=== PATIENT | female | born 1960 | race Caucasian/White ===

== ENCOUNTER 2019-09-14 11:10 | Emergency (ER) | payer SELFPAY ==
[2019-09-14 11:15] VITALS: BP 140/78; PULSE 99; RESP 18; TEMP 36.8; O2SAT 100
--- NOTE | 2019-09-14 12:18 | ED.WOUNDLAC ---
HPI - Wound/Laceration <RACHEL Mclaughlin - Last Filed: 09/15/19 00:23> General Chief Complaint: Wound/Laceration Stated Complaint: Table saw, left forearm Time Seen by Provider: 09/14/19 12:10 Source: patient Mode of arrival: Ambulatory Limitations: no limitations History of Present Illness HPI narrative: This is a 59-year-old female, smoker, who presents to ED with a friend with chief complain of laceration on volar aspect of left forearm. Patient reports she was working on a table saw cutting with a wood block and when she let go of the piece of wood, it flew off and hit her left left forearm and had sustain lacerations which occurred at about 10 30 this morning. Patient right dominant hand. Last tetanus immunization was updated about 2 years ago. Patient reports discomfort and bruise on affected arm. Related Data Home Medications Medication Instructions Recorded Confirmed B-complex with vitamin C 1 tab PO DAILY 05/10/19 05/10/19 cholecalciferol (vitamin D3) PO 05/10/19 05/10/19 tumeric PO 05/10/19 Previous Rx's Medication Instructions Recorded erythromycin 5 mg/gram (0.5 %) eye 1 cm EYE-RIGHT Q8H #1 gram 05/10/19 ointment Allergies Allergy/AdvReac Type Severity Reaction Status Date / Time No Known Drug Allergies Allergy Verified 05/10/19 09:06 Review of Systems <RACHEL Mclaughlin - Last Filed: 09/15/19 00:23> Review of Systems Narrative: General: Denies fever, chills, fatigue, malaise, sweats. HEENT: Denies sinus pain, ear pain, sore throat, difficulty swallowing, dizziness. Respiratory: Denies dyspnea, cough, wheezing, hemoptysis, sputum. Cardiovascular: Denies chest pain, palpitations, orthopnea, edema. Gastrointestinal: Denies nausea, vomiting, abdominal pain, diarrhea, constipation, melena. : Denies dysuria, frequency, incontinence, hematuria, urinary retention. Musculoskeletal: Reports left forearm pain. Skin: See HPI Neurologic: Denies weakness, headache, numbness, change in speech, confusion, seizures, incoordination. Psychiatric: No concerning psychosocial issues. 12-point review of systems is negative except for those stated above. Patient History <RACHEL Mclaughlin - Last Filed: 09/15/19 00:23> Medical History (Updated 09/14/19 @ 12:51 by RACHEL Mclaughlin) No significant past medical history (Acute) Surgical History (Updated 09/14/19 @ 12:21 by RACHEL Mclaughlin) No pertinent past surgical history (Acute) Social History Smoking Status: Current every day smoker Smoking Status: Current every day smoker alcohol intake frequency: 3 or more drinks per day Alcohol type: beer Substance Use Type: does not use Exam <RACHEL Mclaughlin - Last Filed: 09/15/19 00:23> Narrative Exam Narrative: General appearance: well developed, well nourished, in no acute distress. Head: normocephalic, atraumatic, no scalp lesions, non-tender. ENT: Hearing grossly intact. Nose without bleeding, purulent discharge or deviation. Mucous membrane moist, no mucosal lesion. Throat without erythema, tonsillar hypertrophy or exudate. Uvula in midline, airway patent. Neck/Thyroid: neck supple, full range of motion, no visible masses or meningeal signs. No JVD, non-tender without lymphadenopathy. Skin: 5 cm superficial 2 linear laceration and small abrasion on left forearm. no suspicious rashes, lesions over other visible areas. Warm and dry and appropriate color for ethnicity. Heart: no clubbing, no cyanosis, no edema. S1 and S2 normal. RRR w/o murmurs, clicks, or bruits. Lungs: Breathing even and unlabored. No stridor. No accessory muscles used. Able to speak in full sentences. Chest: normal shape and expansion. Abdomen: non-obese, non-distended. Neurologic: alert and oriented. Cognitive exam, SHOP STEWARD and PNS grossly intact on informal exam. Psych: good eye contact, normal affect. Initial Vital Signs Initial Vital Signs: Vital Signs Temperature 98.2 F 09/14/19 11:15 Pulse Rate 99 H 09/14/19 11:15 Respiratory Rate 18 09/14/19 11:15 Blood Pressure 140/78 09/14/19 11:15 Pulse Oximetry 100 09/14/19 11:15 Extrem Left upper extremity: elbow/forearm Details: tenderness, normal ROM, abrasion, laceration, ecchymosis, distal pulses intact and other (no bony tenderness to palpate); no swelling, no unusual warmth, no crepitus and no deformity <Luís Gonzales MD - Last Filed: 09/15/19 23:19> Initial Vital Signs Initial Vital Signs: Vital Signs Temperature 98.2 F 09/14/19 11:15 Pulse Rate 99 H 09/14/19 11:15 Respiratory Rate 18 09/14/19 11:15 Blood Pressure 140/78 09/14/19 11:15 Pulse Oximetry 100 09/14/19 11:15 Procedures <RAJ MclaughlinP - Last Filed: 09/15/19 00:23> Laceration Repair Laceration 1: Site: upper extremity (volar aspect forearm) Side (If applicable): left Size (cm): 5 Description: linear (two linear superficial) Pre-repair: wound explored and irrigated extensively Skin layer closed with: steri-strips Scores <RAJ MclaughlinP - Last Filed: 09/15/19 00:23> GCS Marsha coma scale eye opening: Spontaneous Marsha coma scale verbal response: Orientated Marsha coma scale motor response: Obey commands Timber coma scale total score: 15 Course <RAJ MclaughlinP - Last Filed: 09/15/19 00:23> Vital Signs Vital signs: Vital Signs - 8 hr 09/14/19 11:15 Temperature 98.2 F Pulse Rate 99 H Respiratory Rate 18 Blood Pressure 140/78 Pulse Oximetry 100 <Luís Gonzales MD - Last Filed: 09/15/19 23:19> Vital Signs Vital signs: Vital Signs - 8 hr 09/14/19 11:15 Temperature 98.2 F Pulse Rate 99 H Respiratory Rate 18 Blood Pressure 140/78 Pulse Oximetry 100 MDM - Wound/Laceration <RAJ MclaughlinP - Last Filed: 09/15/19 00:23> Differential Diagnosis Differential diagnosis: Likely laceration and abrasion [facility] Narrative Medical decision making narrative: Left forearm without bony tenderness to palpate and intact active and passive range of motion with distal pulse. X-ray was deferred at this time. Patient was able to move all her fingers without difficulty. 5 cm superficial laceration on left forearm was treated with Dermabond and Steri-Strips and discussed wound care at home with Dermabond and Steri-Strips. Return precautions were discussed with the patient and patient verbalized understanding and in agreement with treatment plan. Patient advised to take [id number] Tylenol and or Motrin as needed for discomfort. Use ice pack on affected site for next 24-48 hours. Discharge Plan Departure Patient Disposition: Home Clinical Impression: Laceration Discharge Date/Time: 09/14/19 13:20 Instructions: DI for Laceration Repair With Dermabond Activity Restrictions/Additional Instructions: You have been diagnosed with [left volar aspect forearm superficial laceration and abrasion which was repair with Dermabond and Steri-Strips]. What to do: *Take your medications as directed. You can use small amount of Neosporin on abrasion but avoid using this over Dermabond and Steri-Strips. Please do not get your wound soaked in the water until the laceration has healed. Keep your dressing intact for next 24 hrs. After then, you could remove your dressing, wash with soap and water. Pat dry with clean papertowel and dress it. Please avoid using oil based ointment, cream, lotion and etc since this may make dermabond lose and remove prematurely. Dermabond will come off in 5-7 days on its own. Do not peel this off or pick on it. You can change dressing as needed and daily. Please monitor for signs and symptoms for infection such as increasing redness, swelling, warmth, pain, fever, purulent discharge. If this occurs, please return to ED or follow up with your primary care physician since your wound may be infected. Please follow up with your primary care provider in 2-3 days for recheck wound. Please keep your wound clean, dry and intact all times. Prescriptions: No Action cholecalciferol (vitamin D3) PO RF: 0 B-complex with vitamin C [Super B Complex-Vitamin C] Tablet 1 tab PO DAILY RF: 0 tumeric PO RF: 0 erythromycin 5 mg/gram (0.5 %) ointment 1 cm EYE-RIGHT Q8H Qty: 1 RF: 0 Referrals: [facility] [Outside]
[2019-09-14 13:07] VITALS: BP 130/80; PULSE 75; O2SAT 98
== END 2019-09-14 13:20 | disposition home or self-care (01) ==
PROVIDERS: Emergency Provider Nurse Practitioner Family
DX: S51.812A Laceration without foreign body of left forearm, initial encounter (principal); W29.3XXA Contact with powered garden and outdoor hand tools and machinery, initial encounter
CPT/HCPCS: 99282; 99283

== ENCOUNTER → 2024-08-27 11:08 | Outpatient (CLI) | payer OTHER, SELFPAY ==
[2024-08-27 12:25] LABS: Influenza A - CEPHEID Flu A NEGATIVE (NEGATIVE); Influenza B - CEPHEID Flu B NEGATIVE (NEGATIVE); Respiratory Syncytial Virus Negative (Negative)
[2024-08-27 12:29] LABS: COVID-19 CEPHEID 4-PLEX PCR Negative (Negative)
== END ==
PROVIDERS: Visit Provider Physician Assistant
DX: J02.9 Acute pharyngitis, unspecified (principal); R05.1 Acute cough
CPT/HCPCS: 87635; 87400 ×2; 87420; 0241U; 87070; 87880

== ENCOUNTER 2025-01-08 11:30 | Outpatient (RCR) | payer OTHER, SELFPAY ==
--- NOTE | 2024-12-04 13:59 | OT.OPPOC ---
Physical, Occupational & Speech Therapy At [facility] Henrietta Millan [id number] 1960 Visit Care Team Role Provider Type Ana Maria Krause PA-C Attending Provider Non-Staff Family Provider Primary Care Provider Referring Provider [facility], [place], [address] Occupational Therapy Plan of Care OT Outpatient Adult Evaluation Start: 12/04/24 11:02 Freq: Status: Active Protocol: Document 12/04/24 13:28 SHARA (Rec: 12/04/24 13:58 JULIO CESARSDKRISTINE [id number]) General Information - Adult Visit Information Visit Number 1 Plan of Care Dates 12/04/24 - 01/15/25 Insurance Information Aashish, maida pre-auth, max 12 total OT visits including 1 annual eval Session Time Visit Start Date 12/04/24 Visit Start Time 11:35 Visit Stop Time 12:20 Setting Treatment Setting Outpatient Care Visit Type Note Type Initial Evaluation Referral Referring Physician Junior Krause Reason for Referral ganglion of hand, unspecified laterality; eval scar tissue and ROM Precautions return to activity as tolerated Identification Identification Confirmed Yes Identification Confirmed By Name, EMR Patient Questionnaires Quick Dash- Upper Extremity Quick Dash UE Score 50 Quick Dash UE Impairment 40 to 59% Impaired (Score 40- 59) Quick Dash- Work and Sports Modules Quick Dash W&S Score W 62.5, S 75 Quick Dash Work and Sport Impairment 60 to 79% Impaired (Score 60- 79) Goals Objective Measurements Objective Measurements AROM: L thumb: CMC RA 50 (R 54 ); CMC PA 41 (R 50); MP 70 (R 80); IP 62 (R 72) Kapandji opposition: B 10/10 Kapandji retroposition: R 3/4, L 2/4 Crm Technical Lead: R 55, 40, 46 (avg 47#), L 40, 25, 30 (avg 31.7#) Pinch: lateral B 12#, pincer R 10#, L 7#; 3 jaw B 10# Treatment Treatment OT educated pt on adductor release to improve L webspace and scar massage for L thumb. OT performed scar massage on L thumb for improved scar extensibility Short Term Goals Short Term Goals 1. Pt will be I with initial HEP. Warp Tier Goals Longterm Goals 1. Pt will report no p! at rest. 2. Pt will demonstrate improved perception of functional I with a QuickDash score of 25 or better. 3. Pt will demonstrate improved perception of leisure tasks with a QuickDash sport score of 50 or better. 4. Pt will increase L CMC PA to 50 for improved mechanics of use. 5. Pt will increase L thumb total active flexion (TAF) to 140 or better for improved use with tools. 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 Sanford, per MD documentation. Pt was referred for skilled OT services for scar tissue, ROM, and return to activity as tolerated. 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 Pt?s medical hx is significant for arthritis, back p!, Pt quit smoking in February 2024. Pt reports p! in L thumb, wrist, and index finger of 2-5/10 with ? tingling? in index finger. Pt?s goal for OT is to ?get rid of this (indicating scar tissue) and tightness?. Pt lives alone and works as wood worker. She reports that she has difficulty opening packages and has modified by using scissors, has to take rbs when performing double hand tasks like raking and shoveling due to p!, has difficulty with fastening/ buttoning, difficulty with opening tight containers, moderate difficulty with personal injury law specialist and cutting food. Pt?s perceived deficits with respect to QuickDash 50% , QuickDash Work62.5%, and QuickDash Sport 75%. Pt presents with thick scar tissue at L thenar eminence and palmar IP crease. Pt presents with decreased web space and tender thumb adductor on palpation. OT notes slight swelling at snuff box. Pt has no joint tenderness at CMC joint line or at snuff box. Pt presents with decreased AROM of L CMC, MP, and IP. Pt?s L child & adolescent psychiatrist strength exceeds age/gender normative data; however, is likely decreased from pt?s baseline as pt?s career and leisure tasks require significant B hand use pt?s child & adolescent psychiatrist is likely closer to that of her dominant hand. As it stands, pt had c/o p! with L gripping and this should be a p! free task for pt. Skilled OT services are appropriate to address these deficits, educate pt on scar mgmt., and promote return to I with BADL/ IADLs and functional I. Reviewed with Patient Goals,Home Exercise Program Plan Length of treatment (weeks) 6 Plan of Care Start Date 12/04/24 Plan of Care End Date 01/15/25 Treatment Frequency Once a Week Treatment Duration 45 Minutes Therapeutic Contents Active Range of Motion,Client Education,Functional Activities,Home Exercise Program,Joint Protection, Manual Therapy,Education, Neuromuscular Re-Education, Self-Care,Stretching/ Flexibility Activities, Therapeutic Activities, Therapeutic Exercises, Modalities Modalities As Needed Types of Modalities Cyrotherapy,Ice Massage Patient Instruction Home Exercise Program,Plan of Care,Questions/Concerns Functional Wrist/Hand Scan Hand Side Sensory Assessment Sensory Profile2 Electronically Signed by: Corine Evans, OT 12/04/24 2016 If you are in agreement with this Plan of Care, please return a signed and dated copy. I have reviewed this Plan of Care and certify that the skilled therapy services above are required to meet the patient?s needs. Physician Signature Date Printed Name and Credentials Clinical Instructor Signature Printed Name and Credentials
--- NOTE | 2024-12-11 13:28 | OT.OP.TRT ---
Visit Care Team Role Provider Type Ana Maria Krause PA-C Attending Provider Non-Staff Family Provider Primary Care Provider Referring Provider Specialty: Medical Address: [address], [place], [address] Email: Occupational Therapy Treatment Note OT Outpatient Treatment Note - Adult Start: 12/04/24 11:02 Freq: Status: Active Protocol: Document 12/11/24 11:28 SHARA (Rec: 12/11/24 13:28 SHARA [id number]) OT Outpatient Adult Treatment Note Session Time Visit Start Date 12/11/24 Visit Start Time 11:35 Visit Stop Time 12:15 Visit Information Visit Number 2/6 Plan of Care Dates 12/04/24 - 01/15/25 Insurance Information maida Zendejas pre-auth, max 12 total OT visits including 1 annual eval Setting Treatment Setting Outpatient Care Visit Type Note Type Treatment Note - Subjective Identification Type Name Identification Reconciled With Medical Record Observations Pt reports that her hand is doing much better and that her scar has really gone down . Pt continues to c/o occasional numbness in L index finger and at times thumb. Pt without p! c/o during therapy today. Chief Complaint(s) Loss of Motion/Stiffness,Pain Effect on Activity,Restricts Patient/Caregiver Compliance with Home Excellent Exercise Program - Objective Short Term Goals 1. Pt will be I with initial HEP. MET 12/11/24 Graduate Teaching Associate Goals 1. Pt will report no p! at rest. 2. Pt will demonstrate improved perception of functional I with a QuickDash score of 25 or better. 3. Pt will demonstrate improved perception of leisure tasks with a QuickDash sport score of 50 or better. 4. Pt will increase L CMC PA to 50 for improved mechanics of use. 5. Pt will increase L thumb total active flexion (TAF) to 140 or better for improved use with tools. - Treatment 1 Descriptor butterfly mobilization for improved retroposition L CMC x 3 minutes Exercises 2 Descriptor Rubber band: 1 DI (for improved support at CMC) x 10 EPB (2 bands) 10x2 1 Descriptor HEP: thumb stabilization web space release web space to web space thumb stabilization web space release with other hand/clip scar massage Pt demonstrates each of these as indicated on HEP. Pt is I with HEP. Manual Therapy Manual Therapy Scar massage to L thumb as tolerated. STM to L thumb adductors for improved web space. STM to L thenar eminence for improved muscle resting length and functional use. PROM to L thumb CMC RA, PA; MCP flex, and IP flex as tolerated. - Assessment Patient Response to Treatment Good Rehabilitation Potential Excellent Impairments Identified ADLs,Body Mechanics, Flexibility,Functional Activities,Pain,Weakness,Range of Motion,Recreational Activities,Meaningful Activities,Stiffness,Swelling, Soft Tissue Mobility Progress Towards Goals Excellent Progress Assessment of Overall Progress Improving Assessment of Improvement Pt is pleasant, cooperative, and appears to be performing her HEP frequently. Pt is I with initial HEP meeting STG goal. Pt tolerates manual techniques well, including STM of muscles, scar massage, and PROM. Pt requires min vc/tc to perform retroposition mobilization correctly. OT issues this to be performed at home as well. OT notes less thickness to scar and overall less tightness to the thumb musculature. Pt with better web spacing but still with limited retroposition. Pt tolerated all tx well and demonstrates improvements toward established goals. Cont per established POC. Reviewed with Patient/Caregiver Goals,Home Exercise Program - Plan Therapy Recommendations Continue with Current Program Amount of Therapy Recommended 1-2 Months Frequency of Treatment Once a Week Length of Session 45 Minutes Therapeutic Contents Active Range of Motion,Client Education,Functional Activities,Home Exercise Program,Joint Protection, Manual Therapy,Education, Neuromuscular Re-Education, Self-Care,Stretching/ Flexibility Activities, Therapeutic Activities, Therapeutic Exercises, Modalities Modalities As Needed Types of Modalities Cyrotherapy,Ice Massage
--- NOTE | 2024-12-18 13:13 | OT.OP.TRT ---
Visit Care Team Role Provider Type Ana Maria Krause PA-C Attending Provider Non-Staff Family Provider Primary Care Provider Referring Provider Specialty: Medical Address: [address], [place], [address] Email: Occupational Therapy Treatment Note OT Outpatient Treatment Note - Adult Start: 12/04/24 11:02 Freq: Status: Active Protocol: Document 12/18/24 11:35 SHARA (Rec: 12/18/24 09:25 SHARA [id number]) OT Outpatient Adult Treatment Note Session Time Visit Start Date 12/18/24 Visit Start Time 11:35 Visit Stop Time 12:15 Visit Information Visit Number 3/6 Plan of Care Dates 12/04/24 - 01/15/25 Insurance Information maida Zendejas pre-auth, max 12 total OT visits including 1 annual eval Setting Treatment Setting Outpatient Care Visit Type Note Type Treatment Note - Subjective Identification Type Name Identification Reconciled With Medical Record Observations Pt reports that her thumb is feeling a little thicker and says she has not been doing her exercises diligently. Pt reports that she hasn't done the butterfly exercises because it has been hurting her. Pt has been working on several boats and has had no pain or weakness. Pt reports her hand feeling looser and less thick following tx today. Pt reports no p! at start or end of tx. Chief Complaint(s) Loss of Motion/Stiffness,Pain Effect on Activity,Restricts Patient/Caregiver Compliance with Home Excellent Exercise Program - Objective Short Term Goals 1. Pt will be I with initial HEP. 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 Pt will report no p! at rest. MET 12/18/24 2. Pt will demonstrate improved perception of functional I with a QuickDash score of 25 or better. 3. Pt will demonstrate improved perception of leisure tasks with a QuickDash sport score of 50 or better. 4. Pt will increase L CMC PA to 50 for improved mechanics of use. 5. Pt will increase L thumb total active flexion (TAF) to 140 or better for improved use with tools. - Treatment 1 Descriptor King sam mobilization for improved retroposition L CMC x 3 minutes Exercises 2 Descriptor Rubber band: 1 DI (for improved support at CMC) x 10 EPB (2 bands) 10x2 1 Descriptor HEP: OT added charanjit sam mobilization to replace butterfly mobilization for improved retroposition of thumb. Table edge stretch also added to HEP for improved extensibility to web space. OT will review pt's I with these next tx. Manual Therapy Manual Therapy Scar massage to L thumb as tolerated. STM to L thumb adductors for improved web space. STM to L thenar eminence for improved muscle resting length and functional use. PROM to L thumb CMC RA, PA; MCP flex, and IP flex as tolerated and needed. - Assessment Patient Response to Treatment Excellent Rehabilitation Potential Excellent Impairments Identified ADLs,Body Mechanics, Flexibility,Functional Activities,Pain,Weakness,Range of Motion,Recreational Activities,Meaningful Activities,Stiffness,Swelling, Soft Tissue Mobility Progress Towards Goals Excellent Progress Assessment of Overall Progress Improving Assessment of Improvement Pt is pleasant and cooperative . Pt initially reported that she wasn't performing her HEP as she should and believed that was the cause for increased tightness/thickening today. At start of tx, pt presented with pronounced tightness at thumb adductor/ thenar eminence. Through conversation, pt reports she is doing her HEP at least once a day. OT tells her this is sufficient, but to add in another rep if she feels it getting tighter/thicker. OT issued new exercises for HEP, replacing butterfly with charanjit sam for pt comfort and carry over in mobilizing cmc for retroposition. Pt tolerates manual techniques well, including STM of muscles , scar massage, and PROM. Pt requires min vc/tc to perform retroposition mobilization correctly. OT notes less thickness to scar and overall less tightness to the thumb musculature following STM. Pt with better web spacing but still with limited retroposition. Pt tolerated all tx well and demonstrates improvements toward established goals. Cont per established POC. Reviewed with Patient/Caregiver Goals,Home Exercise Program - Plan Therapy Recommendations Continue with Current Program Amount of Therapy Recommended 1-2 Months Frequency of Treatment Once a Week Length of Session 45 Minutes Therapeutic Contents Active Range of Motion,Client Education,Functional Activities,Home Exercise Program,Joint Protection, Manual Therapy,Education, Neuromuscular Re-Education, Self-Care,Stretching/ Flexibility Activities, Therapeutic Activities, Therapeutic Exercises, Modalities Modalities As Needed Types of Modalities Cyrotherapy,Ice Massage
--- NOTE | 2025-01-08 13:03 | OT.OP.TRT ---
Visit Care Team Role Provider Type Ana Maria Krause PA-C Attending Provider Non-Staff Family Provider Primary Care Provider Referring Provider Specialty: Medical Address: [address], [place], [address] Email: Occupational Therapy Treatment Note OT Outpatient Treatment Note - Adult Start: 12/04/24 11:02 Freq: Status: Active Protocol: Document 01/08/25 11:32 SHARA (Rec: 01/08/25 12:28 SHARA [id number]) OT Outpatient Adult Treatment Note Session Time Visit Start Date 01/08/25 Visit Start Time 11:32 Visit Stop Time 12:10 Visit Information Visit Number 4/6 Plan of Care Dates 12/04/24 - 01/15/25 Insurance [employer], no pre-auth, max 12 total OT visits including 1 Information annual eval - Subjective Identification Type Name Identification Medical Record Reconciled With Observations Pt reports that she went kayaking this weekend and that her thumb did well. Pt reports a little pain following but nothing to worry about. Pt reports that she still has a difficult time pulling out tape and has some p! with this. Pt states I think I'm doing good and can do this on my own. 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 Pt will be I with initial HEP. MET 12/11/24 Mcfp Goals 1. Pt will report no p! at rest. MET 12/18/24 2. Pt will demonstrate improved perception of functional I with a QuickDash score of 25 or better. MET 01/08/25 3. Pt will demonstrate improved perception of leisure tasks with a QuickDash sport score of 50 or better. MET 01/08/25 4. Pt will increase L CMC PA to 50 for improved mechanics of use. MET 01/08/25 5. Pt will increase L thumb total active flexion (TAF) to 140 or better for improved use with tools. - Treatment 1 Descriptor Pt demonstrates I with king sam and demonstrates modified butterfly position. Exercises 2 Descriptor Strength: tputty green for lateral pinch and lateral pinch pulls 1 Descriptor HEP: pt demonstrates HEP I Manual Therapy Manual Therapy Scar massage to L thumb as tolerated. STM to L thumb adductors for improved web space. STM to L thenar eminence for improved muscle resting length and functional use. PROM to L thumb CMC RA, PA; MCP flex, and IP flex as tolerated and needed. - Assessment Patient Response to Excellent Treatment Rehabilitation Excellent Potential Impairments ADLs,Body Mechanics,Flexibility,Functional Activities, Identified Pain,Weakness,Range of Motion,Recreational Activities, Meaningful Activities,Stiffness,Swelling,Soft Tissue Mobility Progress Towards Excellent Progress Goals Assessment of Improving Overall Progress Assessment of Pt is pleasant and cooperative and demonstrates Improvement improvements with all ROM measurements (except retroposition). Pt demonstrates improvements in L livestock judging coach strength and pincer strength. Pt reports significant improvements in function with respect to Quick Dash. Pt is I with HEP. Additionally, pt presents with more open web space and significantly minimized scar tissue. Pt has met sufficient goals for d/c from skilled OT services to HEP. Pt issued green tputty. Reviewed with Goals,Progress Being Made,Home Exercise Program Patient/Caregiver Patient/Caregiver Excellent Understanding - Plan Therapy Discharge to Home Exercise Program,Discharge from Recommendations Occupational Therapy
--- NOTE | 2025-01-08 13:03 | OT.OP.DC ---
Visit Care Team Role Provider Type Ana Maria Krause PA-C Attending Provider Non-Staff Family Provider Primary Care Provider Referring Provider Address: [address] [place], [place] [address], [place], [address] Email: OT Outpatient OT Outpatient Adult Evaluation Start: 12/04/24 11:02 Freq: Status: Active Protocol: Document 12/04/24 13:28 SHARA (Rec: 12/04/24 13:58 SHARA [id number]) General Information - Adult Visit Information Visit Number 1 Plan of Care Dates 12/04/24 - 01/15/25 Insurance [employer], no pre-auth, max 12 total OT visits including 1 Information annual eval Session Time Visit Start Date 12/04/24 Visit Start Time 11:35 Visit Stop Time 12:20 Setting Treatment Setting Outpatient Care Visit Type Note Type Initial Evaluation Referral Referring Physician Junior Krause Reason for Referral ganglion of hand, unspecified laterality; eval scar tissue and ROM Precautions return to activity as tolerated Identification Identification Yes Confirmed Identification Name, EMR Confirmed By Patient Questionnaires Quick Dash- Upper Extremity Quick Dash UE Score 50 Quick Dash UE 40 to 59% Impaired (Score 40-59) Impairment Quick Dash- Work and Sports Modules Quick Dash W&S Score W 62.5, S 75 Quick Dash Work and 60 to 79% Impaired (Score 60-79) Sport Impairment Goals Objective Measurements Objective AROM: L thumb: CMC RA 50 (R 54); CMC PA 41 (R 50); MP Measurements 70 (R 80); IP 62 (R 72) Kapandji opposition: B 10/10 Kapandji retroposition: R 3/4, L 2/4 Combination Worker: R 55, 40, 46 (avg 47#), L 40, 25, 30 (avg 31.7#) Pinch: lateral B 12#, pincer R 10#, L 7#; 3 jaw B 10# Treatment Treatment OT educated pt on adductor release to improve L webspace and scar massage for L thumb. OT performed scar massage on L thumb for improved scar extensibility Short Term Goals Short Term Goals 1. Pt will be I with initial HEP. Sound Person Goals Sound Person Goals 1. Pt will report no p! at rest. 2. Pt will demonstrate improved perception of functional I with a QuickDash score of 25 or better. 3. Pt will demonstrate improved perception of leisure tasks with a QuickDash sport score of 50 or better. 4. Pt will increase L CMC PA to 50 for improved mechanics of use. 5. Pt will increase L thumb total active flexion (TAF) to 140 or better for improved use with tools. 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 Sanford, per MD documentation. Pt was referred for skilled OT services for scar tissue, ROM, and return to activity as tolerated. 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 Pt?s medical hx is significant for arthritis, back p!, Pt quit smoking in February 2024. Pt reports p! in L thumb, wrist, and index finger of 2-5/10 with ?tingling? in index finger. Pt?s goal for OT is to ?get rid of this (indicating scar tissue) and tightness?. Pt lives alone and works as wood worker. 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 Pt?s perceived deficits with respect to QuickDash 50%, QuickDash Work62.5%, and QuickDash Sport 75%. Pt presents with thick scar tissue at L thenar eminence and palmar IP crease. Pt presents with decreased web space and tender thumb adductor on palpation. OT notes slight swelling at snuff box. Pt has no joint tenderness at CMC joint line or at snuff box. Pt presents with decreased AROM of L CMC, MP, and IP. Pt? s L production service manager strength exceeds age/gender normative data; however, is likely decreased from pt?s baseline as pt?s career and leisure tasks require significant B hand use pt?s production service manager is likely closer to that of her dominant hand. As it stands, pt had c/o p! with L gripping and this should be a p! free task for pt. Skilled OT services are appropriate to address these deficits, educate pt on scar mgmt., and promote return to I with BADL/IADLs and functional I. Reviewed with Goals,Home Exercise Program Patient Plan Length of treatment 6 (weeks) Plan of Care Start 12/04/24 Date Plan of Care End 01/15/25 Date Treatment Frequency Once a Week Treatment Duration 45 Minutes Therapeutic Contents Active Range of Motion,Client Education,Functional Activities,Home Exercise Program,Joint Protection, Manual Therapy,Education,Neuromuscular Re-Education, Self-Care,Stretching/Flexibility Activities,Therapeutic Activities,Therapeutic Exercises,Modalities Modalities As Needed Types of Modalities Cyrotherapy,Ice Massage Patient Instruction Home Exercise Program,Plan of Care,Questions/Concerns Functional Wrist/Hand Scan Hand Side Sensory Assessment Sensory Profile2 OT Outpatient Discharge Note - Adult Start: 12/04/24 11:02 Freq: Status: Active Protocol: Document 01/08/25 11:32 SHARA (Rec: 01/08/25 12:28 SHARA [id number]) OT Outpatient Adult Discharge Note Session Time Visit Start Date 01/08/25 Visit Start Time 11:32 Visit Stop Time 12:10 Visit Information Visit Number 4/6 Plan of Care Dates 12/04/24 - 01/15/25 Insurance [employer]ende[employer], no pre-auth, max 12 total OT visits including 1 Information annual eval - Subjective Identification Type Name Identification Medical Record Reconciled With Observations Pt reports that she went kayaking this weekend and that her thumb did well. Pt reports a little pain following but nothing to worry about. Pt reports that she still has a difficult time pulling out tape and has some p! with this. Pt states I think I'm doing good and can do this on my own. Chief Complaint(s) Loss of Motion/Stiffness,Pain Effect on Activity, Restricts Patient/Caregiver Excellent Compliance with Home Exercise Program - Objective Objective AROM: L thumb: CMC RA 50, CMC PA 41; MP 70, IP 62 Measurements Kapandji opposition: 05/09 Kapandji retroposition: L 2/4 Combination Worker: L 45, 44, 45 (avg 44.7#) Pinch: lateral L 12 #, pincer L 7.5#, 3 jaw L 10# QuickDash 2.3, QuickDash Work & Sport 25 Short Term Goals 1. Pt will be I with initial HEP. MET 12/11/24 Detention Goals 1. Pt will report no p! at rest. MET 12/18/24 2. Pt will demonstrate improved perception of functional I with a QuickDash score of 25 or better. MET 01/08/25 3. Pt will demonstrate improved perception of leisure tasks with a QuickDash sport score of 50 or better. MET 01/08/25 4. Pt will increase L CMC PA to 50 for improved mechanics of use. MET 01/08/25 5. Pt will increase L thumb total active flexion (TAF) to 140 or better for improved use with tools. - - Assessment Patient Response to Excellent Treatment Rehabilitation Excellent Potential Impairments ADLs,Body Mechanics,Flexibility,Functional Activities, Identified Pain,Weakness,Range of Motion,Recreational Activities, Meaningful Activities,Stiffness,Swelling,Soft Tissue Mobility Progress Towards Excellent Progress Goals Assessment of Improving Overall Progress Assessment of Improvement Pt is 64 yo F referred for skilled OT services following sx of cystic masses, referred due to scar tissue, ROM and return to activity. Pt has been seen for eval and 3 treatments. Pt demonstrates improvement in all functional ROM for L thumb, L production service manager strength, and L pincer strength. See objective section for details. Pt reports return to desired leisure task of kayaking this weekend without increased c/o of L thumb p! Pt reports improvements in general function, work and sport tasks. On eval, pt reported her QuickDash at 50%, she is now report an impairment of 2.3% for daily tasks. On eval her QuickDash Work was 62.5 and Sport was 75, they are both now 25%. Pt is I with HEP, which includes scar massage, web space release, retroposition mobilization and lateral pinch strengthening. Pt has made great progress toward goals and is appropriate for d/c to HEP. D/C from skilled OT services at this time. Reviewed with Goals,Progress Being Made,Home Exercise Program Patient/Caregiver Patient/Caregiver Excellent Understanding - Plan Therapy Discharge to Home Exercise Program,Discharge from Recommendations Occupational Therapy
== END 2025-01-10 12:47 | disposition home or self-care (01) ==
LOC: OT 11:30
PROVIDERS: Family Provider Physician Assistant Medical; PCP Physician Assistant Medical; Referring Provider Physician Assistant Medical; Visit Provider Physician Assistant Medical
DX: M67.449 Ganglion, unspecified hand (principal); M67.441 Ganglion, right hand
CPT/HCPCS: 97110; 97140; 97165